=== PATIENT | male | born 1965 | race Caucasian/White ===

== ENCOUNTER → 2023-05-18 12:49 | Outpatient (REF) | payer OTHER, SELFPAY | LOC: RAD 12:49 | PROVIDERS: ATTENDING PHYSICIAN Student in an Organized Health Care Education/Training Program | DX: M25.511 Pain in right shoulder (principal) | CPT/HCPCS: 73030 ==

== ENCOUNTER → 2023-06-01 06:46 | Outpatient (REF) | payer OTHER, SELFPAY | LOC: PAVMRI 06:46 | PROVIDERS: ATTENDING PHYSICIAN Student in an Organized Health Care Education/Training Program; FAMILY PHYSICIAN Family Medicine | DX: M25.511 Pain in right shoulder (principal) | CPT/HCPCS: 73221 ==

== ENCOUNTER → 2023-09-13 13:24 | Outpatient (REF) | payer OTHER, SELFPAY | LOC: RAD 13:24 | PROVIDERS: ATTENDING PHYSICIAN Student in an Organized Health Care Education/Training Program | DX: M25.571 Pain in right ankle and joints of right foot (principal) | CPT/HCPCS: 73590; 73610; 93971 ==

== ENCOUNTER → 2024-09-01 19:44 | Outpatient (REF) | payer OTHER, SELFPAY | LOC: MRI 3T 19:44 | PROVIDERS: ATTENDING PHYSICIAN Physician Assistant; FAMILY PHYSICIAN Family Medicine | DX: M25.522 Pain in left elbow (principal) | CPT/HCPCS: 73221 ==

== ENCOUNTER → 2024-12-29 09:59 | Outpatient (REF) | payer SELFPAY | LOC: HWRAD 09:59 | PROVIDERS: ATTENDING PHYSICIAN Internal Medicine Cardiovascular Disease; FAMILY PHYSICIAN Family Medicine | DX: R07.89 Other chest pain (principal) | CPT/HCPCS: 75571 ==

== ENCOUNTER → 2025-01-19 18:35 | Outpatient (REF) | payer OTHER, SELFPAY | LOC: MRI 3T 18:35 | PROVIDERS: ATTENDING PHYSICIAN Orthopaedic Surgery; FAMILY PHYSICIAN Family Medicine | DX: M25.522 Pain in left elbow (principal) | CPT/HCPCS: 73221 ==

== ENCOUNTER → 2025-01-30 15:00 | Outpatient (REF) | payer OTHER, SELFPAY | LOC: RCS 15:00 | PROVIDERS: ATTENDING PHYSICIAN Internal Medicine Cardiovascular Disease; FAMILY PHYSICIAN Family Medicine | DX: R06.09 Other forms of dyspnea (principal); R60.0 Localized edema | CPT/HCPCS: 93306 ==

== ENCOUNTER → 2025-02-02 12:57 | Outpatient (REF) | payer OTHER, SELFPAY | LOC: RCS 12:57 | PROVIDERS: ATTENDING PHYSICIAN Internal Medicine Cardiovascular Disease; FAMILY PHYSICIAN Family Medicine | DX: R06.09 Other forms of dyspnea (principal); R60.0 Localized edema | CPT/HCPCS: 93017; 93350 ==